=== PATIENT | male | born 1995 | race Asian ===

== ENCOUNTER → 2019-05-11 | Outpatient (CLI) | payer OTHER | LOC: COL.RAD 07:16 | DX: K21.9 Gastro-esophageal reflux disease without esophagitis (principal); R14.2 Eructation | CPT/HCPCS: A9541 ==

== ENCOUNTER → 2020-12-01 | Outpatient (CLI) | payer OTHER | LOC: COL.RAD | DX: L03.316 Cellulitis of umbilicus (principal) ==

== ENCOUNTER → 2020-12-05 | Outpatient (CLI) | payer OTHER | LOC: COL.RAD 07:13 | DX: K80.20 Calculus of gallbladder without cholecystitis without obstruction (principal); N20.0 Calculus of kidney; R19.8 Other specified symptoms and signs involving the digestive system and abdomen; L03.316 Cellulitis of umbilicus | CPT/HCPCS: Q9967 ==